=== PATIENT | female | born 1995 | race Two or more races ===

== ENCOUNTER 2023-02-27 13:22 | Emergency (ER) | payer MEDICAID, OTHER ==
[~2023-02-27] VITALS: Ht 157.5 cm; Wt 90.8 kg
[2023-02-27 14:52] VITALS: BP 114/76
[2023-02-27] MEDS ORDERED: ACETAMINOPHEN 500 MG TAB PO ONE (15:00)
[2023-02-27] MEDS ORDERED: METH-1182 PO (15:43)
[2023-02-27] MEDS ORDERED: IBUP-1456 PO (15:43)
== END 2023-02-27 15:49 | disposition home or self-care (01) ==
LOC: ER 13:22 → EDBD 13:22 → ER 15:48
DX: S39.012A Strain of muscle, fascia and tendon of lower back, initial encounter (principal); S00.03XA Contusion of scalp, initial encounter; Z79.1 Long term (current) use of non-steroidal anti-inflammatories (NSAID); Z79.899 Other long term (current) drug therapy; W10.9XXA Fall (on) (from) unspecified stairs and steps, initial encounter; Y93.89 Activity, other specified; Y92.89 Other specified places as the place of occurrence of the external cause; Y99.8 Other external cause status
CPT/HCPCS: 70450; 72100; 72125